=== PATIENT | male | born 1985 ===

== ENCOUNTER 2017-04-08 20:37 | Emergency (ER) | payer MEDICAID, OTHER ==
[2017-04-08 20:37] VITALS: BMI 21.7
[2017-04-08 23:04] LABS: BASO % 0.5 % (0.0-2.0); EOS % 0.3 % (0.0-4.0); HEMATOCRIT 42.9 % (35.0-51.0); LYMPH # 2.6 K/uL (1.0-4.3); LYMPH % 30.8 % (20.0-40.0); MEAN CELL VOLUME 97.4 fL (80.0-94.0); MEAN CORPUSCULAR HEMOGLOBIN 31.6 pg (27.0-31.0); MEAN CORPUSCULAR HGB CONC 32.5 g/dL (33.0-37.0); MEAN PLATELET VOLUME 8.7 fL (7.2-11.7); MONO # 0.8 K/uL (0.0-0.8); MONO % 9.4 % (0.0-10.0); RED CELL DISTRIBUTION WIDTH 13.2 % (11.5-14.5); WHITE BLOOD COUNT 8.6 K/uL (4.8-10.8)
[2017-04-08 23:12] LABS: CHLORIDE 104 mmol/L (98-107); POTASSIUM 3.4 mmol/L (3.6-5.2); SODIUM 140 mmol/L (132-148)
[2017-04-08 23:14] LABS: BILIRUBIN,TOTAL 1.2 mg/dL (0.2-1.3); CARBON DIOXIDE 25 mmol/L (22-30); GFR AFRICAN-AMERICAN > 60
[2017-04-08 23:15] LABS: ALB/GLOB RATIO 1.5 (1.0-2.1); ALKALINE PHOSPHATASE 71 U/L (38-126); ALT/SGPT 23 U/L (21-72); AST/SGOT 14 U/L (17-59); BLOOD UREA NITROGEN 19 mg/dL (9-20); CALCIUM 9.5 mg/dl (8.6-10.4); GLUCOSE,RANDOM 75 mg/dL (75-110); TOTAL PROTEIN 7.7 g/dL (6.3-8.3)
[2017-04-08] MEDS ORDERED: Pantoprazole 80 MG in Sodium Chloride 0.9% 100 ML IV STA (23:29)
[2017-04-08] MEDS ORDERED: Sodium Chloride 0.9% 1,000 ML IV ONE (23:29)
[2017-04-08] MEDS ORDERED: Sodium Chloride 0.9% 1,000 ML ONE (23:59)
--- NOTE | 2017-04-08 23:59 | C.PDOC ---
History Of Present Illness Pt ate some probably undercooked burgers and developed nausea, vomiting and abdominal pain. Not tolerating po. No f/c/. Worsening over the last 24-36 hours Time Seen by Provider: 04/08/17 23:29 Chief Complaint (Nursing): GI Problem History Per: Patient History/Exam Limitations: no limitations Onset/Duration Of Symptoms: Days Current Symptoms Are (Timing): Still Present Context: Food Severity: Moderate Location Of Pain/Discomfort: Diffuse Radiation Of Pain To:: None Quality Of Discomfort: Dull, Cramping, Burning Associated Symptoms: Nausea, Vomiting. denies: Fever, Chills Exacerbating Factors: Food Alleviating Factors: None Last Bowel Movement: Today Recent travel outside of the [place]: No Additional History Per: Family Past Medical History Reviewed: Historical Data, Nursing Documentation, Vital Signs Vital Signs: Last Vital Signs Temp 98.1 F 04/09/17 01:20 Pulse 50 L 04/09/17 01:20 Resp 20 04/09/17 01:20 BP 140/88 04/09/17 01:20 Pulse Ox 99 04/09/17 01:20 - Medical History PMH: Anxiety, Bronchitis Denies: Chronic Kidney Disease Surgical History: Appendectomy - [facility] Procedures APPLICATION OF SPLINT (07/20/03) CLOSURE SKIN & SUBCUTANEOUS NEC (10/11/02) OTHER APPENDECTOMY (11/18/03) TETANUS TOXOID ADMINIST (10/11/02) Family History: States: Hypertension - Social History Hx Tobacco Use: Yes Hx Alcohol Use: Yes Hx Substance Use: Yes (marijuana) - Immunization History Hx Tetanus Toxoid Vaccination: No Hx Influenza Vaccination: No Hx Pneumococcal Vaccination: Yes Review Of Systems Constitutional: Negative for: Fever, Chills ENT: Negative for: Throat Pain Cardiovascular: Negative for: Chest Pain, Palpitations Respiratory: Negative for: Shortness of Breath Gastrointestinal: Positive for: Nausea, Vomiting, Abdominal Pain Genitourinary: Negative for: Dysuria Musculoskeletal: Negative for: Back Pain Skin: Negative for: Rash, Lesions, Jaundice, Bruising Neurological: Negative for: Weakness Psych: Negative for: Anxiety Physical Exam - Physical Exam Appears: Non-toxic, No Acute Distress Skin: Warm, Dry Head: Normacephalic Eye(s): bilateral: Normal Inspection Oral Mucosa: Moist Neck: Supple Chest: Symmetrical Cardiovascular: Rhythm Regular Respiratory: No Rales, No Rhonchi, No Wheezing Gastrointestinal/Abdominal: Soft, No Tenderness, No Distention Back: No CVA Tenderness Extremity: No Tenderness Extremity: Bilateral: Atraumatic, Normal Color And Temperature Neurological/Psych: Oriented x3, Normal Speech, Normal Cognition Gait: Steady ED Course And Treatment - Laboratory Results Result Diagrams: 04/08/17 22:57 04/08/17 22:57 O2 Sat by Pulse Oximetry: 98 Pulse Ox Interpretation: Normal Reevaluation Time: 01:22 Reassessment Condition: Improved Medical Decision Making Medical Decision Making: Upon provider reevaluation patient is feeling better, is medically stable, and requires no further treatment in the ED at this time. Patient will be discharged home with Rx for zofran . Counseling was provided and all questions were answered regarding diagnosis and need for follow up with dr otto. There is agreement to discharge plan. Return if symptoms persist or worsen. Disposition Counseled Patient/Family Regarding: Studies Performed, Diagnosis, Need For Followup - Disposition Referrals: Gurmeet Otto JD, MD [Primary Care Provider] - Disposition: HOME/ ROUTINE Disposition Time: 22:15 Condition: FAIR Prescriptions: Ondansetron ODT [Zofran ODT] 1 odt PO BID PRN #10 odt PRN Reason: Nausea/Vomiting Instructions: Food Poisoning (ED), Acute Nausea and Vomiting (ED) - Clinical Impression Clinical Impression: Abdominal pain, Nausea & vomiting
[2017-04-09 00:30] LABS: INR 1.1
[2017-04-09 01:20] VITALS: BP 140/88; PULSE 50; RESP 20; TEMP 98.1
[2017-04-09 01:25] VITALS: O2SAT 98
== END 2017-04-09 01:35 | disposition home or self-care (01) ==
LOC: C.ER 20:37 → SUPCPDRO 20:37 → C.ER 04-09 01:35
DX: R10.84 Generalized abdominal pain (principal); R11.2 Nausea with vomiting, unspecified
CPT/HCPCS: 80053; 85025; 85610; 85730; 86850; 86900; 96361; 96365; 96375; 99284; C9113; J2405; J7040